=== PATIENT | male | born 1965 | race Caucasian/White ===

== ENCOUNTER 2020-08-21 09:23 | Inpatient (IN) | payer OTHER, SELFPAY ==
[~2020-08-21] VITALS: Ht 167.6 cm; Wt 73.6 kg
[2020-08-21 10:11] LABS: BASOPHILS % (AUTO) 1 % (0-1); EOSINOPHILS % (AUTO) 1 % (1-7); LYMPHOCYTES % (AUTO) 17 % (22-44); MEAN CORPUSCULAR HEMOGLOBIN 32.4 pg (27.5-34.5); MEAN CORPUSCULAR HGB CONC 33.7 g/dL (33.2-36.2); MEAN PLATELET VOLUME 7.9 fL (7.4-10.4); MONOCYTES % (AUTO) 8 % (2-9); NEUTROPHILS % (AUTO) 74 % (42-75); PLATELET COUNT 234 x10^3/uL (130-400); RED BLOOD COUNT 4.46 x10^6/uL (4.38-5.82)
[2020-08-21 10:13] LABS: MD NO
[2020-08-21 10:18] LABS: ALBUMIN 3.3 g/dL (3.4-5.0); ANION GAP 6 mmol/L (5-15); CALCIUM 8.3 mg/dL (8.5-10.1); CHLORIDE 109 mmol/L (98-107)
[2020-08-21 10:25] LABS: ALANINE AMINOTRANSFERASE 51 U/L (12-78); ALKALINE PHOSPHATASE 85 U/L (45-117); BILIRUBIN,TOTAL 0.6 mg/dL (0.2-1.0); CREATININE 1.22 mg/dL (0.7-1.3); TOTAL PROTEIN 6.5 g/dL (6.4-8.2)
--- NOTE | 2020-08-21 12:25 | NUR ---
OFF THE FLOOR TO CT
[2020-08-21] MEDS ORDERED: OMNIPAQUE 350 MG/ML, 100ML BOTTLE ONE (12:35)
[2020-08-21] MEDS ORDERED: FUROSEMIDE 40 MG/4 ML IV ONE (13:00)
[2020-08-21] MEDS ORDERED: FUROSEMIDE 20 MG/2 ML ONE (13:07)
[2020-08-21] MEDS ORDERED: QUET50TA5 PO (13:18)
--- NOTE | 2020-08-21 13:19 | NUR ---
BREAK RN: GIVEN FOOD PER , LASIX PER JUN. HTN. AWAITING ADMIT BED. NO NEEDS AT THIS TIME.
--- NOTE | 2020-08-21 13:38 | NUR ---
REPORT TO BARBARA GRAHAM.
--- NOTE | 2020-08-21 13:52 | NUR ---
PT SISTER RENÉE GIRALDO [phone]
[2020-08-21] MEDS ORDERED: POLYETHYLENE GLYCOL 17 GM PACKET PO PRN (14:30)
[2020-08-21] MEDS ORDERED: BISACODYL 10 MG SUPP PR PRN (14:30)
[2020-08-21] MEDS ORDERED: DOCUSATE 100 MG CAPSULE PO PRN (14:30)
[2020-08-21] MEDS ORDERED: ENOXAPARIN 40 MG/0.4 ML SQ SCH (14:30)
[2020-08-21] MEDS ORDERED: ACETAMINOPHEN 325 MG TABLET PO PRN (14:30)
[2020-08-21] MEDS ORDERED: ENOXAPARIN 40 MG/0.4 ML ONE (14:50)
[2020-08-21 15:01] VITALS: BP 157/98
[2020-08-21 15:17] LABS: INTERNATIONAL NORMALIZED RATIO 1.22 (0.93-1.1)
[2020-08-21 15:21] LABS: CHOLESTEROL, TOTAL 159 mg/dL (140-239); TRIGLYCERIDES 106 mg/dL (50-200); VLDL CHOLESTEROL 21 mg/dL (0-25)
[2020-08-21 15:25] LABS: CHOL/HDL RATIO 5.7; HDL CHOL % 18 % (26-37); HDL CHOLESTEROL (DIRECT) 28 mg/dL (40-60); LDL CHOLESTEROL,CALCULATED 110 mg/dL (54-169); LDL/HDL RATIO 3.9 (0.5-3.0)
[2020-08-21] MEDS ORDERED: CYCL10TA2 PO (16:40)
[2020-08-21] MEDS ORDERED: PLEASE ENTER MEASURED WEIGHT MC SCH (17:00)
[2020-08-21] MEDS: HEPARIN 25,000 UNITS/250ML PMX 250 ML IV PRN (17:39)
[2020-08-21 19:15] VITALS: BP 156/115
[2020-08-21] MEDS ORDERED: NITROGLYCERIN 0.4 MG BOTTLE (25 TABS) SL PRN (19:30)
[2020-08-21] MEDS ORDERED: NITROGLYCERIN 0.4 MG/SPRAY SL PRN (19:30)
[2020-08-21 19:34] VITALS: BP 149/100
[2020-08-21] MEDS: QUETIAPINE 25MG TABLET PO SCH (21:03)
[2020-08-21 21:28] VITALS: BP 144/114
[2020-08-21] MEDS ORDERED: ENALAPRILAT 1.25 MG/ML, 2ML IV ONE (21:30)
[2020-08-21 22:28] LABS: AMPHETAMINE SCREEN, URINE Positive (Negative); BARBITURATE SCREEN, URINE Negative (Negative); BENZODIAZEPINE SCREEN, URINE Negative (Negative); CANNABINOID SCREEN, URINE Negative (Negative); COCAINE SCREEN, URINE Negative (Negative); METHADONE SCREEN, URINE Negative (Negative); OPIATE SCREEN, URINE Negative (Negative)
[2020-08-21 22:36] VITALS: BP 137/94
[2020-08-22 01:00] VITALS: BP 154/101
[2020-08-22 06:53] LABS: BASOPHILS % (AUTO) 1 % (0-1); EOSINOPHILS % (AUTO) 1 % (1-7); LYMPHOCYTES % (AUTO) 21 % (22-44); MEAN CORPUSCULAR HEMOGLOBIN 32.4 pg (27.5-34.5); MEAN CORPUSCULAR HGB CONC 33.5 g/dL (33.2-36.2); MEAN PLATELET VOLUME 7.8 fL (7.4-10.4); MONOCYTES % (AUTO) 6 % (2-9); NEUTROPHILS % (AUTO) 71 % (42-75); PLATELET COUNT 250 x10^3/uL (130-400); RED BLOOD COUNT 4.88 x10^6/uL (4.38-5.82); RED CELL DISTRIBUTION WIDTH 13.5 % (9.4-14.8)
[2020-08-22 07:00] LABS: MD NO
[2020-08-22 07:08] LABS: ALANINE AMINOTRANSFERASE 53 U/L (12-78); ALBUMIN 3.1 g/dL (3.4-5.0); ANION GAP 10 mmol/L (5-15); CALCIUM 8.1 mg/dL (8.5-10.1); CHLORIDE 107 mmol/L (98-107)
[2020-08-22 07:19] LABS: ALKALINE PHOSPHATASE 90 U/L (45-117); BILIRUBIN,TOTAL 1.3 mg/dL (0.2-1.0); CREATININE 1.24 mg/dL (0.7-1.3); TOTAL PROTEIN 6.3 g/dL (6.4-8.2)
[2020-08-22] MEDS ORDERED: METOPROLOL TARTRATE 50 MG TAB PO ONE (07:30)
[2020-08-22] MEDS: HEPARIN 5,000 UNITS/ML, 1ML IV PRN ×2 (08:03→18:31)
[2020-08-22] MEDS ORDERED: CARVEDILOL 6.25 MG TABLET ONE (08:16)
[2020-08-22] MEDS ORDERED: ASPIRIN 81 MG TABLET EC ONE (08:16)
[2020-08-22] MEDS ORDERED: LISINOPRIL 10 MG TABLET ONE (08:16)
[2020-08-22] MEDS: LISINOPRIL 5 MG TABLET PO SCH (08:18)
[2020-08-22] MEDS: ASPIRIN 81 MG TABLET EC PO SCH (08:19)
[2020-08-22] MEDS: CARVEDILOL 6.25 MG TABLET PO SCH ×2 (08:19→17:21)
[2020-08-22] MEDS: QUETIAPINE 25MG TABLET PO SCH ×2 (08:21→21:31)
[2020-08-22] MEDS: FUROSEMIDE 40 MG/4 ML IV SCH ×2 (08:21→17:21)
[2020-08-22] MEDS: NICOTINE 21 MG/24 HR PATCH.TD24 TD SCH (08:27)
[2020-08-22 08:29] VITALS: BP 150/96
[2020-08-22 12:25] VITALS: BP 125/89
[2020-08-22] MEDS ORDERED: HYDROCHLOROTHIAZIDE 12.5 MG CAPSULE PO ONE (16:00)
[2020-08-22] MEDS: HEPARIN 25,000 UNITS/250ML PMX 250 ML IV PRN (18:36)
[2020-08-22 20:35] VITALS: BP 135/92
[2020-08-22] MEDS: ATORVASTATIN 80 MG TABLET PO SCH (21:30)
[2020-08-23 00:25] VITALS: BP 130/83
[2020-08-23] MEDS: ASPIRIN 81 MG TABLET EC PO SCH (05:58)
[2020-08-23] MEDS: CARVEDILOL 6.25 MG TABLET PO SCH (05:58)
[2020-08-23] MEDS ORDERED: REGADENOSON 0.4 MG/5 ML SYRINGE ONE (08:13)
[2020-08-23 08:23] VITALS: BP 137/91
[2020-08-23] MEDS: FUROSEMIDE 40 MG/4 ML IV SCH ×2 (08:36→17:55)
[2020-08-23] MEDS: LISINOPRIL 5 MG TABLET PO SCH (08:36)
[2020-08-23] MEDS: QUETIAPINE 25MG TABLET PO SCH ×2 (08:37→21:00)
[2020-08-23] MEDS: NICOTINE 21 MG/24 HR PATCH.TD24 TD SCH (08:38)
[2020-08-23] MEDS: SPIRONOLACTONE 25 MG TABLET PO SCH (10:57)
[2020-08-23] MEDS: APIXABAN 5 MG TABLET PO SCH ×2 (10:57→21:10)
[2020-08-23] MEDS ORDERED: ACETAMINOPHEN 325 MG TABLET PO PRN (11:00)
[2020-08-23 12:50] VITALS: BP 100/68
[2020-08-23] MEDS: CARVEDILOL 12.5 MG TABLET PO SCH (17:55)
[2020-08-23 20:15] VITALS: BP 97/62
[2020-08-23] MEDS: ATORVASTATIN 80 MG TABLET PO SCH (21:10)
[2020-08-23] MEDS ORDERED: NICOTINE 21 MG/24 HR PATCH.TD24 TD ONE (21:30)
[2020-08-24 01:34] VITALS: BP 108/73
[2020-08-24 05:39] VITALS: BP 99/66
[2020-08-24] MEDS: ASPIRIN 81 MG TABLET EC PO SCH (05:40)
[2020-08-24] MEDS: CARVEDILOL 12.5 MG TABLET PO SCH (05:40)
[2020-08-24 08:00] VITALS: BP 103/70
[2020-08-24] MEDS: QUETIAPINE 25MG TABLET PO SCH (08:26)
[2020-08-24] MEDS: APIXABAN 5 MG TABLET PO SCH (08:27)
[2020-08-24] MEDS: NICOTINE 21 MG/24 HR PATCH.TD24 TD SCH (08:27)
[2020-08-24] MEDS ORDERED: FUROSEMIDE 40 MG TABLET PO SCH (10:00)
[2020-08-24] MEDS ORDERED: LISI5TAB7 PO (10:23)
[2020-08-24] MEDS ORDERED: CARV6.2512 PO (10:23)
[2020-08-24] MEDS ORDERED: NITR0.4T28 SL (10:23)
[2020-08-24] MEDS ORDERED: APIX5TAB PO (10:23)
[2020-08-24] MEDS ORDERED: NICO-587 TD (10:23)
[2020-08-24] MEDS ORDERED: SPIR25TA PO (10:23)
[2020-08-24] MEDS ORDERED: FURO40TA6 PO (10:23)
[2020-08-24] MEDS ORDERED: ASPI81TA45 PO (10:23)
[2020-08-24] MEDS ORDERED: ATOR-2 PO (10:23)
[2020-08-24] MEDS: SPIRONOLACTONE 25 MG TABLET PO SCH (10:36)
[2020-08-24] MEDS: LISINOPRIL 5 MG TABLET PO SCH (10:36)
[2020-08-24] MEDS ORDERED: CARVEDILOL 6.25 MG TABLET PO SCH (18:00)
[2020-08-25] MEDS ORDERED: FUROSEMIDE 40 MG TABLET PO SCH (09:00)
== END 2020-08-24 12:02 | disposition home or self-care (01) | DRG 280 ==
LOC: ED 10:57 → EDIP 13:08 → 5SO 14:40 → DCLOUNGE 08-24 11:52
PROVIDERS: ADMIT Hospitalist; ATTEND Internal Medicine
DX: I11.0 Hypertensive heart disease with heart failure (principal); I21.A1 Myocardial infarction type 2; I50.21 Acute systolic (congestive) heart failure; J18.9 Pneumonia, unspecified organism; F15.20 Other stimulant dependence, uncomplicated; F10.20 Alcohol dependence, uncomplicated; I42.9 Cardiomyopathy, unspecified; F17.200 Nicotine dependence, unspecified, uncomplicated; G89.29 Other chronic pain; Z20.822 Contact with and (suspected) exposure to COVID-19; R00.0 Tachycardia, unspecified; Z82.3 Family history of stroke; Z91.19 Patient's noncompliance with other medical treatment and regimen
CPT/HCPCS: 36415; 71045; 71275; 78452; 80053; 80061; 80307; 83735; 83880; 84100; 84439; 84443; 84484; 85025; 85520; 85610; 93005; 93017; 93306; 93922; 99285; G0378; J1644; J1650; J1940; J2785; Q9967; U0005; A9502; U0003

== ENCOUNTER 2020-10-27 15:55 | Inpatient (IN) | payer MEDICAID, OTHER ==
[~2020-10-27] VITALS: Ht 167.6 cm; Wt 71.3 kg
[~2020-10-27 15:55] MED LIST: APIX5TAB PO; ASPI81TA45 PO; ATOR-2 PO; CARV6.2512 PO; CYCL10TA2 PO; FURO40TA6 PO; LISI5TAB7 PO; NICO-587 TD; NITR0.4T28 SL; QUET50TA5 PO; SPIR25TA PO
--- NOTE | 2020-10-27 16:23 | NUR ---
MD Barger at bedside.
[2020-10-27] MEDS ORDERED: SODIUM CHLORIDE FLUSH 10ML SYR IVF ONE (16:30)
[2020-10-27] MEDS ORDERED: DOXYCYCLINE 100 MG in DEXTROSE 5% 250 ML IV ONE (17:00)
[2020-10-27] MEDS ORDERED: CEFTRIAXONE 1,000 MG in DEXTROSE 5% 50 ML IVPB ONE (17:00)
--- NOTE | 2020-10-27 17:03 | NUR ---
, [address] to update. .
--- NOTE | 2020-10-27 17:03 | NUR ---
Awaiting BC draw x2 prior to abx admin.
[2020-10-27 17:06] LABS: BASOPHILS % (AUTO) 0 % (0-1); EOSINOPHILS % (AUTO) 1 % (1-7); LYMPHOCYTES % (AUTO) 19 % (22-44); MEAN CORPUSCULAR HEMOGLOBIN 32.4 pg (27.5-34.5); MEAN CORPUSCULAR HGB CONC 33.1 g/dL (33.2-36.2); MEAN PLATELET VOLUME 8.1 fL (7.4-10.4); MONOCYTES % (AUTO) 8 % (2-9); NEUTROPHILS % (AUTO) 73 % (42-75); PLATELET COUNT 277 x10^3/uL (130-400); RED BLOOD COUNT 4.74 x10^6/uL (4.38-5.82)
[2020-10-27 17:09] LABS: ALANINE AMINOTRANSFERASE 53 U/L (12-78); ALBUMIN 3.3 g/dL (3.4-5.0); ANION GAP 5 mmol/L (5-15); CALCIUM 8.7 mg/dL (8.5-10.1); CHLORIDE 105 mmol/L (98-107); CREATININE 1.54 mg/dL (0.7-1.3)
[2020-10-27 17:14] LABS: ALKALINE PHOSPHATASE 88 U/L (45-117); BILIRUBIN,TOTAL 1.6 mg/dL (0.2-1.0); TOTAL PROTEIN 6.9 g/dL (6.4-8.2)
[2020-10-27 17:19] LABS: TROPONIN I 0.188 ng/mL (0.000-0.045)
[2020-10-27] MEDS ORDERED: ASPIRIN 81 MG TABLET CHEW PO ONE (17:30)
[2020-10-27] MEDS ORDERED: ASPIRIN 81 MG TABLET CHEW ONE (17:34)
--- NOTE | 2020-10-27 17:37 | NUR ---
Pt ambulatory to bathroom with standby assist approx 15 minutes ago. Pt remains in bathroom.
[2020-10-27 17:42] LABS: C-REACTIVE PROTEIN, QUANT 0.74 mg/dL (0.02-0.49)
--- NOTE | 2020-10-27 18:15 | NUR ---
Admitting hospitalist at bedside.
[2020-10-27 18:28] LABS: MICROSCOPIC INDICATED
[2020-10-27 18:36] LABS: AMPHETAMINE SCREEN, URINE Positive (Negative); BARBITURATE SCREEN, URINE Negative (Negative); BENZODIAZEPINE SCREEN, URINE Negative (Negative); CANNABINOID SCREEN, URINE Negative (Negative); COCAINE SCREEN, URINE Negative (Negative); METHADONE SCREEN, URINE Negative (Negative); OPIATE SCREEN, URINE Negative (Negative)
--- NOTE | 2020-10-27 18:55 | NUR ---
REPORT FROM MIN[facility]A, ALL QUESTIONS ADDRESSED TRANSFER OF CARE AT THIS TIME.
[2020-10-27] MEDS ORDERED: POLYETHYLENE GLYCOL 17 GM PACKET PO PRN (19:00)
[2020-10-27] MEDS ORDERED: BISACODYL 10 MG SUPP PR PRN (19:00)
[2020-10-27] MEDS ORDERED: CYCLOBENZAPRINE 10 MG TABLET PO PRN (19:00)
[2020-10-27] MEDS ORDERED: NITROGLYCERIN SINGLE TAB 0.4 MG SL PRN (19:00)
[2020-10-27] MEDS ORDERED: morphine SULFATE 10 MG/ML, 1ML IVPush PRN (19:00)
[2020-10-27] MEDS ORDERED: ONDANSETRON ODT 4 MG PO PRN (19:00)
[2020-10-27] MEDS ORDERED: ACETAMINOPHEN 325 MG TABLET PO PRN (19:00)
[2020-10-27] MEDS ORDERED: ALBUTEROL SULFATE 2.5 MG/3 ML NPPB PRN (19:30)
[2020-10-27 20:14] VITALS: BP 139/102
[2020-10-27] MEDS: SODIUM CHLORIDE 0.9% 1,000 ML IV SCH (21:19)
[2020-10-27] MEDS: DOXYCYCLINE 100 MG in DEXTROSE 5% 250 ML IV SCH (21:19)
[2020-10-27] MEDS: ATORVASTATIN 80 MG TABLET PO SCH (21:23)
[2020-10-27] MEDS: APIXABAN 5 MG TABLET PO SCH (21:23)
[2020-10-27] MEDS: QUETIAPINE 25MG TABLET PO SCH (21:23)
[2020-10-27] MEDS: CARVEDILOL 6.25 MG TABLET PO SCH (21:30)
[2020-10-27 23:40] LABS: TROPONIN I 0.185 ng/mL (0.000-0.045)
[2020-10-28 02:29] VITALS: BP_SYST 123; BP_SYST 144; BP_DIAS 86; BP_DIAS 88
[2020-10-28] MEDS: SODIUM CHLORIDE 0.9% 1,000 ML IV SCH ×3 (05:00→20:22)
[2020-10-28 05:20] VITALS: BP 141/100
[2020-10-28 05:24] LABS: BASOPHILS % (AUTO) 1 % (0-1); CHLORIDE 104 mmol/L (98-107); EOSINOPHILS % (AUTO) 1 % (1-7); LYMPHOCYTES % (AUTO) 22 % (22-44); MEAN CORPUSCULAR HEMOGLOBIN 32.6 pg (27.5-34.5); MEAN CORPUSCULAR HGB CONC 33.6 g/dL (33.2-36.2); MONOCYTES % (AUTO) 7 % (2-9); NEUTROPHILS % (AUTO) 70 % (42-75); PLATELET COUNT 240 x10^3/uL (130-400); RED BLOOD COUNT 4.31 x10^6/uL (4.38-5.82)
[2020-10-28] MEDS: ASPIRIN 81 MG TABLET EC PO SCH (05:24)
[2020-10-28] MEDS: CARVEDILOL 6.25 MG TABLET PO SCH ×2 (05:24→17:47)
[2020-10-28 05:35] LABS: ANION GAP 7 mmol/L (5-15); CALCIUM 8.3 mg/dL (8.5-10.1); CREATININE 1.28 mg/dL (0.7-1.3); TROPONIN I 0.185 ng/mL (0.000-0.045)
[2020-10-28 08:31] VITALS: BP 132/92
[2020-10-28] MEDS ORDERED: FUROSEMIDE 40 MG TABLET PO SCH (09:00)
[2020-10-28] MEDS: NICOTINE 21 MG/24 HR PATCH.TD24 TD SCH (09:10)
[2020-10-28] MEDS: DOXYCYCLINE 100 MG in DEXTROSE 5% 250 ML IV SCH ×2 (09:15→20:20)
[2020-10-28] MEDS: POLYETHYLENE GLYCOL 17 GM PACKET PO SCH ×2 (09:16→20:22)
[2020-10-28] MEDS: SENNA/DOCUSATE TABLET PO SCH (09:17)
[2020-10-28] MEDS: QUETIAPINE 25MG TABLET PO SCH ×2 (09:17→20:21)
[2020-10-28] MEDS: SPIRONOLACTONE 25 MG TABLET PO SCH (09:17)
[2020-10-28] MEDS: LISINOPRIL 5 MG TABLET PO SCH (09:18)
[2020-10-28] MEDS: APIXABAN 5 MG TABLET PO SCH ×2 (09:18→20:21)
[2020-10-28 14:00] VITALS: BP 124/81
[2020-10-28] MEDS ORDERED: CEFTRIAXONE 1,000 MG in DEXTROSE 5% 50 ML IVPB SCH (18:00)
[2020-10-28 19:46] VITALS: BP 124/89
[2020-10-28] MEDS: ATORVASTATIN 80 MG TABLET PO SCH (20:20)
[2020-10-29 01:27] VITALS: BP 136/85
[2020-10-29] MEDS: ASPIRIN 81 MG TABLET EC PO SCH (06:24)
[2020-10-29] MEDS: CARVEDILOL 6.25 MG TABLET PO SCH (06:25)
[2020-10-29 06:56] VITALS: BP 131/97
[2020-10-29] MEDS ORDERED: APIX5TAB PO (08:24)
[2020-10-29] MEDS ORDERED: ATOR-2 PO (08:24)
[2020-10-29] MEDS ORDERED: CARV6.2512 PO (08:24)
[2020-10-29] MEDS ORDERED: ASPI81TA45 PO (08:24)
[2020-10-29] MEDS ORDERED: SPIR25TA PO (08:24)
[2020-10-29] MEDS ORDERED: LISI5TAB7 PO (08:24)
[2020-10-29] MEDS: LISINOPRIL 5 MG TABLET PO SCH (08:34)
[2020-10-29] MEDS: SENNA/DOCUSATE TABLET PO SCH (08:34)
[2020-10-29] MEDS: APIXABAN 5 MG TABLET PO SCH (08:34)
[2020-10-29] MEDS: SPIRONOLACTONE 25 MG TABLET PO SCH (08:34)
[2020-10-29] MEDS: QUETIAPINE 25MG TABLET PO SCH (08:34)
[2020-10-29] MEDS: POLYETHYLENE GLYCOL 17 GM PACKET PO SCH (08:35)
[2020-10-29] MEDS: NICOTINE 21 MG/24 HR PATCH.TD24 TD SCH (08:35)
[2020-10-29] MEDS: DOXYCYCLINE 100 MG in DEXTROSE 5% 250 ML IV SCH (08:35)
== END 2020-10-29 12:52 | disposition home or self-care (01) | DRG 177 ==
LOC: ED 17:03 → EDIP 17:59 → 5SO 19:51
PROVIDERS: ADMIT Hospitalist; ATTEND Hospitalist
DX: J69.0 Pneumonitis due to inhalation of food and vomit (principal); I50.43 Acute on chronic combined systolic (congestive) and diastolic (congestive) heart failure; I21.A1 Myocardial infarction type 2; N17.0 Acute kidney failure with tubular necrosis; I42.7 Cardiomyopathy due to drug and external agent; Z20.822 Contact with and (suspected) exposure to COVID-19; I51.3 Intracardiac thrombosis, not elsewhere classified; K59.00 Constipation, unspecified; D75.89 Other specified diseases of blood and blood-forming organs; F10.10 Alcohol abuse, uncomplicated; F15.10 Other stimulant abuse, uncomplicated; F17.210 Nicotine dependence, cigarettes, uncomplicated; F31.9 Bipolar disorder, unspecified; F41.9 Anxiety disorder, unspecified; Z79.01 Long term (current) use of anticoagulants; Z82.1 Family history of blindness and visual loss; Z82.49 Family history of ischemic heart disease and other diseases of the circulatory system; Z83.3 Family history of diabetes mellitus; Z86.711 Personal history of pulmonary embolism; Z91.19 Patient's noncompliance with other medical treatment and regimen
CPT/HCPCS: 36415; 71045; 80048; 80053; 80307; 81001; 82728; 83605; 83615; 83690; 83735; 83880; 84145; 84484; 85025; 86140; 87040; 87205; 93005; 96374; G0378; J0696; J7060; U0005; J7030; U0003